=== PATIENT | male | born 1985 | race African-American/Black ===

== ENCOUNTER 2017-04-06 10:41 | Emergency (ER) | payer OTHER ==
[~2017-04-06] VITALS: Ht 188 cm; Wt 106.6 kg
[~2017-04-06 10:41] MED LIST: CLEOCIN HCL300 MG PO; HYDROCODONE-APA10 ML PO; PREDNISONE 10 M10 M1 PO
== END 2017-04-06 11:47 | disposition home or self-care (01) ==
LOC: ER 10:41
DX: J02.9 Acute pharyngitis, unspecified (principal); F17.210 Nicotine dependence, cigarettes, uncomplicated